=== PATIENT | male | born 1990 | race Caucasian/White ===

== ENCOUNTER 2016-05-27 04:07 | Emergency (ER) | payer MEDICAID ==
[~2016-05-27] VITALS: Ht 162.6 cm; Wt 127.0 kg
[2016-05-27 05:52] VITALS: BP 140/76
== END 2016-05-27 05:52 | disposition home or self-care (01) ==
LOC: ER 04:20
DX: J40 Bronchitis, not specified as acute or chronic (principal); R03.0 Elevated blood-pressure reading, without diagnosis of hypertension; Z93.0 Tracheostomy status; Z88.0 Allergy status to penicillin
CPT/HCPCS: 71010; 93005; 99283

== ENCOUNTER 2017-01-09 10:42 | Emergency (ER) | payer MEDICAID ==
[~2017-01-09] VITALS: Ht 172.7 cm; Wt 127.0 kg
[2017-01-09] MEDS ORDERED: LORAZEPAM 1MG TABLET PO ONE (12:15)
[2017-01-09 13:15] VITALS: BP 140/75
== END 2017-01-09 13:27 | disposition home or self-care (01) ==
LOC: ER 10:56
DX: F41.9 Anxiety disorder, unspecified (principal); R51 Headache; R11.0 Nausea; Z88.0 Allergy status to penicillin
CPT/HCPCS: 71010; 93005; 99284; Z7610

== ENCOUNTER 2017-11-21 00:13 | Emergency (ER) | payer MEDICAID ==
[~2017-11-21] VITALS: Ht 170.2 cm; Wt 127.0 kg
[2017-11-21] MEDS ORDERED: ONDANSETRON 4MG ODT PO STA (01:34)
[2017-11-21] MEDS ORDERED: MECLIZINE 25MG TABLET PO ONE (01:45)
[2017-11-21 02:13] LABS: BASOPHILS % 0.5 % (0.0-2.0); EOSINOPHILS % 0.8 % (0.0-5.0); HEMATOCRIT. 49.5 % (42.0-52.0); HEMOGLOBIN. 17.1 g/dL (14.0-18.0); LYMPHOCYTES % 15.8 % (20.0-50.0); MEAN CORPUSCULAR VOLUME 84.1 fL (80.0-94.0); MEAN PLATELET VOLUME 8.7 fl (7.4-10.4); MONOCYTES % 11.6 % (2.0-8.0); NEUTROPHILS % 71.3 % (40.0-76.0); PLATELET 327 x1000/uL (130-400); RED BLOOD CELL COUNT 5.89 mill/uL (4.7-6.1); RED CELL DISTRIBUTION WIDTH 13.4 % (11.6-14.6)
[2017-11-21 02:16] LABS: CHLORIDE 104 mEq/L (98-107)
[2017-11-21 04:21] LABS: CLARITY URINE CLEAR (CLEAR); COLOR URINE YELLOW (YELLOW); KETONES URINE NEGATIVE (NEGATIVE); LEUKOCYTE ESTERASE URINE NEGATIVE (NEGATIVE); NITRITE URINE NEGATIVE (NEGATIVE); OCCULT BLOOD URINE NEGATIVE (NEGATIVE); PH URINE 5.5 (4.5-8.0); PROTEIN URINE TRACE (NEGATIVE)
[2017-11-21] MEDS ORDERED: KETOROLAC 15MG/ML VIAL IM ONE (05:15)
[2017-11-21 06:45] VITALS: BP 146/87
== END 2017-11-21 06:47 | disposition home or self-care (01) ==
LOC: ER 00:13
DX: R42 Dizziness and giddiness (principal); R51 Headache; R11.0 Nausea; Q85.02 Neurofibromatosis, type 2; F41.9 Anxiety disorder, unspecified; Z93.0 Tracheostomy status; Z88.0 Allergy status to penicillin
CPT/HCPCS: 36415; 70450; 80053; 81003; 82962; 85025; 96372; 99285; J1885; Q0162; J8597